=== PATIENT | female | born 1965 | race African-American/Black ===

== ENCOUNTER 2018-10-12 08:09 | Day surgery (SDC) | payer OTHER ==
[2018-10-12] MEDS ORDERED: MIDAZOLAM 1 MG/ML 2 ML INJ (09:22)
[2018-10-12] MEDS ORDERED: PROPOFOL 40 ML (09:22)
[2018-10-12] MEDS ORDERED: FENTAnyl 50 MCG/ML VIAL (09:23)
== END 2018-10-12 16:05 | disposition home or self-care (01) ==
LOC: GIL 08:09
DX: Z12.11 Encounter for screening for malignant neoplasm of colon (principal); K57.30 Diverticulosis of large intestine without perforation or abscess without bleeding; K64.4 Residual hemorrhoidal skin tags; E11.9 Type 2 diabetes mellitus without complications; I10 Essential (primary) hypertension; J45.909 Unspecified asthma, uncomplicated
CPT/HCPCS: 45378; 82962